=== PATIENT | male | born 1960 | race Caucasian/White ===

== ENCOUNTER 2021-01-16 07:27 | Outpatient (REF) | payer OTHER, SELFPAY ==
--- NOTE | ~2021-01-16 | CT_ITS ---
EXAMINATION: CT CHEST SCREENING CLINICAL INFORMATION: Follow-up lung screening. COMPARISON: CT chest 07/18/2020. TECHNIQUE: Multidetector volumetric CT imaging of the chest is performed without contrast using low dose technique. Additional 2D coronal and sagittal reformatted images and axial 3D maximum intensity projection (MIP) images are generated on the CT workstation. This CT examination was performed using dose optimization techniques as appropriate, variously including the following: *Automated exposure control *Adjustment of mA and/or kV according to patient size (this includes techniques or standardized protocols for targeted exams where dose is matched to indication/reason for exam; i.e. extremities or head) *Use of iterative reconstruction technique DLP: 74 mGy-cm FINDINGS: LUNGS: The lungs are well expanded and clear of acute pneumonic process. There is a 5 mm nodule right upper lobe axial image 164/6. There are 2 mm calcified nodules left upper lobe axial image 191/6, lingula 316/6. MEDIASTINUM: The thyroid lobes are symmetrical and normal. The central trachea and the bronchi are widely patent. No abnormal mediastinal or hilar lymph nodes seen heart size and the great vessels are normal caliber. PLEURA: There is no pleural effusion. No pleural mass or thickening. AXILLA: Few scattered bilateral axillary benign lymph nodes are seen. The chest wall is unremarkable. UPPER ABDOMEN: Visualized liver, spleen, pancreas and bilateral adrenal glands are unremarkable. OSSEOUS STRUCTURES: Moderate ventral spondylosis mid and lower dorsal spine. No lytic or sclerotic process seen. CT/CT lung screen follow up IMPRESSION: Stable noncalcified 5 mm nodules right upper lobe and 2 small calcified granulomas. ASSESSMENT: Lung-RADS category 2: Benign. RECOMMENDATION: Low-dose annual CT chest.
== END 2021-01-16 07:28 | disposition home or self-care (01) ==
LOC: HO.CT 07:27
PROVIDERS: Visit Provider Physician Assistant Medical
DX: Z12.2 Encounter for screening for malignant neoplasm of respiratory organs (principal); F17.210 Nicotine dependence, cigarettes, uncomplicated
CPT/HCPCS: 71250

== ENCOUNTER → 2021-02-08 09:06 | Outpatient (BNVA) | payer OTHER, SELFPAY | PROVIDERS: PCP Internal Medicine; Visit Provider Surgery | DX: R91.1 Solitary pulmonary nodule (principal); F17.210 Nicotine dependence, cigarettes, uncomplicated; Z79.899 Other long term (current) drug therapy | CPT/HCPCS: 99212 ==

== ENCOUNTER 2021-08-01 07:53 | Outpatient (REF) | payer OTHER, SELFPAY ==
--- NOTE | 2021-08-01 | PFT_ITS ---
FLOWS: FEV1 44% of predicted at 1.54 L. FVC 80% of predicted at 3.69 L. FEV1 to FVC ratio of 0.42. Positive bronchodilator response. LUNG VOLUMES: Total lung capacity 128% of predicted at 8.72 L. Residual volume 258% of predicted at 5.72 L. Slow vital capacity 65% of predicted at 3.00 L. Expiratory reserve volume 43% of predicted at 0.57 L. Diffusion capacity is moderately decreased. IMPRESSION: Severe obstructive ventilatory defect with positive bronchodilator response. Increased total lung capacity suggests hyperinflation. Increased residual volume suggests air trapping. Decreased expiratory reserve volume suggests extrathoracic restriction likely secondary to abdominal obesity. Decreased diffusion capacity suggests emphysema. MD DIANA Lopez/MODL / [id number]
== END 2021-08-01 07:54 | disposition home or self-care (01) ==
LOC: HO.RESP 07:53
PROVIDERS: PCP Internal Medicine; Visit Provider Internal Medicine
DX: J44.9 Chronic obstructive pulmonary disease, unspecified (principal)
CPT/HCPCS: 94060; 94727; 94729

== ENCOUNTER 2022-01-21 07:27 | Outpatient (REF) | payer OTHER, SELFPAY ==
--- NOTE | ~2022-01-21 | CT_ITS ---
EXAMINATION: CT CHEST SCREENING CLINICAL INFORMATION: Former smoker. Quit 6 years ago. 27 pack years. Tube 0.5 packs per day. COMPARISON: Previous chest CT most recent December 2020 TECHNIQUE: Multidetector volumetric CT imaging of the chest is performed without contrast using low dose technique. Additional 2D coronal and sagittal reformatted images and axial 3D maximum intensity projection (MIP) images are generated on the CT workstation. This CT examination was performed using dose optimization techniques as appropriate, variously including the following: *Automated exposure control *Adjustment of mA and/or kV according to patient size (this includes techniques or standardized protocols for targeted exams where dose is matched to indication/reason for exam; i.e. extremities or head) *Use of iterative reconstruction technique DLP: 76 mGy-cm FINDINGS: LUNGS: There is evidence of emphysema. There is a 4 mm noncalcified right upper lobe nodule axial image 176 series 6 that is stable. There is a 3 mm calcified left lower lobe nodule axial image 226 series 6 that is stable. There is a 3 mm calcified lingular nodule axial image 351 series 6 that is stable. The lungs are otherwise clear. No endobronchial or endotracheal lesion is seen. MEDIASTINUM: Mild coronary artery calcification. The mediastinum is otherwise normal. PLEURA: There is no pleural effusion. No pleural mass or thickening. AXILLA: No lymphadenopathy. UPPER ABDOMEN: There is a low-attenuation lesion in the upper pole the left kidney that is stable. This may represent a cyst. There may be diverticulosis of the colon. OSSEOUS STRUCTURES: Degenerative changes of the spine. CT/CT lung screening IMPRESSION: Emphysema. Stable small pulmonary nodules. Mild coronary artery calcification. ASSESSMENT: Lung-RADS category 2: Benign RECOMMENDATION: Annual low-dose chest CT follow-up recommended.
== END 2022-01-21 07:28 | disposition home or self-care (01) ==
LOC: HO.CT 07:27
PROVIDERS: PCP Internal Medicine; Visit Provider Physician Assistant Medical
DX: Z12.2 Encounter for screening for malignant neoplasm of respiratory organs (principal); F17.210 Nicotine dependence, cigarettes, uncomplicated
CPT/HCPCS: 71271

== ENCOUNTER 2022-09-15 13:58 | Day surgery (SDC) | payer OTHER, SELFPAY ==
--- NOTE | 2022-09-15 | ECG_ITS ---
Test Reason : rhythm change Blood Pressure : / mmHG Vent. Rate : 090 BPM Atrial Rate : 090 BPM P-R Int : 162 ms QRS Dur : 082 ms QT Int : 394 ms P-R-T Axes : 085 066 069 degrees QTc Int : 481 ms Sinus rhythm with frequent Premature ventricular complexes in a pattern of bigeminy Abnormal ECG No previous ECGs available Referred By: Evita Rea Electronically Signed By:PHOEBE BRADY MD
[2022-09-15 14:13] VITALS: BMI 31.7
[2022-09-15 14:18] VITALS: BP 126/78; PULSE 79; RESP 18; TEMP 36.2; O2SAT 96
[2022-09-15 14:19] VITALS: BMI 31.7
--- NOTE | 2022-09-15 14:39 | PC.NURSE ---
educated patient on risk of jewelry on during procedure, patient stated aware of risks and unable to remove ring and to go forward with procedure.
--- NOTE | 2022-09-15 14:42 | P.CONAN_ITS ---
HPI - Anesthesia Eval Consult details Narrative: 62 yo male patient for colonoscopy PMFSH Active Problems Active Problems: All Active Problems (Updated 09/15/22 @ 09:14 by Shanna Powell, RN) Pulmonary nodule (Acute) Personal history of nicotine dependence (Acute) Past Medical History Medical History (Updated 09/15/22 @ 09:14 by Shanna Powell, SIENNA) COPD (chronic obstructive pulmonary disease) History of MRSA infection (~2015) History of seizure disorder Hypertension Personal history of nicotine dependence Spondylosis of thoracolumbar spine Tubular adenoma of colon (~2010) Family History Family history of problems with anesthesia: No Surgical History Surgical History (Updated 01/24/22 @ 11:45 by Taylor Villarreal PA-C) History of colonoscopy History of eye surgery History of Problems with Anesthesia: No Social History Social History Patient Tobacco Use Status: Former Tobacco user Use of substances other than those prescribed or required for medical reasons: No Are you DNR?: Yes Advance Directives: No Advance Directives Information Provided: Yes Meds Allergies Allergy/AdvReac Type Severity Reaction Status Date / Time No Known Allergies Allergy Verified 02/08/21 09:08 [No Known Allergies*] Active Medications: Current Medications Sodium Biphosphate/Sodium Phosphate (Sodium Phosphate,[place]-Dibasic 133 Ml Enema) 133 ml IN ONCE PRN PRN Reason: Poor Colonoscopy Prep Results Home Medications Medication Instructions Recorded Confirmed Last Taken Type ipratropium bromide 17 2 puff inhalation QID 10/02/20 02/08/21 Unknown History mcg/actuation HFA aerosol inhaler (Atrovent HFA) carbamazepine 200 mg tablet mg PO 09/15/22 09/15/22 Unknown History fluticasone 500 mcg-salmeterol 50 1 puff inhalation BID 09/15/22 09/15/22 Unknown History mcg/dose blistr powdr for inhalation (Advair Diskus) lisinopril 5 mg tablet 1 tab PO DAILY 09/15/22 09/15/22 Unknown History Exam Exam Date and Time: September 15, 2022 144 Height,Weight and Vital Signs: Height 5 ft 9 in Weight 97.522 kg Last Vital Signs Temp 97.2 F 09/15/22 14:18 Pulse 79 09/15/22 14:18 Resp 18 09/15/22 14:18 BP 126/78 09/15/22 14:18 Pulse Ox 96 09/15/22 14:18 O2 Del Method 09/15/22 14:18 Airway Mallampati Class: II TM Dist: >3cm Neck ROM: Limited Denture: Upper and Lower Heart: RRR Lungs: CTAB Assessment and Plan Assessment Anesthesia Assessment: Anesthesia Plan Discussed Final Anesthetic Review Family History of Problems with Anesthesia: No History of Problems with Anesthesia: No NPO: Yes ASA Class: III Final Preanesthetic Review: No Changes in Pt Med Stat, Meds/Allgs Chart Reviewed, Consent Obtained/Reviewed and Anes Risks/Benef Reviewed Patient Risk: Intermediate Procedure Risk: Low Assessment/Block/Sedation in SS: Assess/Block/Sedation-SS Anesthetic Plan Anesthetic Plan: MAC: Disposition: Standard PACU
[2022-09-15] MEDS: Lactated Ringers 1,000 ML 100 ML IVCONT (14:52)
[2022-09-15 15:53] VITALS: BP 123/93; PULSE 60; RESP 20; TEMP 36.4; O2SAT 99
--- NOTE | 2022-09-15 15:54 | PM.OP ---
Brief Operative Note Date of Service: 09/15/22 Pre-op diagnosis: Screening Post-op diagnosis: other (Diverticulosis) Procedure: Colonoscopy to the cecum and TI Surgeon: Gumaro Swanson Anesthesia: MAC Was an Notching Press Operator used for this Procedure?: No Estimated blood loss (mL): 0 Pathology: none sent Condition: stable Disposition: PACU
[2022-09-15 16:08] VITALS: BP 116/38; PULSE 78; RESP 20; O2SAT 100
[2022-09-15 16:23] VITALS: BP 125/62; PULSE 68; RESP 20; TEMP 36.4; O2SAT 96
--- NOTE | 2022-09-16 03:01 | OP_ITS ---
SURGEON: Gumaro Swanson MD INDICATIONS: The patient presents for evaluation of colorectal cancer screening and personal history of tubular adenoma of the colon. Full consent has been obtained from him for this, including risks of bleeding and perforation. PREOPERATIVE DIAGNOSIS: POSTOPERATIVE DIAGNOSIS: PROCEDURE PERFORMED: Colonoscopy to cecum and terminal ileum. ESTIMATED BLOOD LOSS: COMPLICATIONS: ANESTHESIA: Monitored anesthesia care. ASSISTANTS: SPECIMENS: PREOPERATIVE DIAGNOSES: Colorectal cancer screening and personal history of tubular adenoma of the colon. POSTOPERATIVE DIAGNOSES: Colorectal cancer screening and personal history of tubular adenoma of the colon, sigmoid diverticulosis, and internal hemorrhoids. DESCRIPTION OF PROCEDURE: The patient was placed in the left lateral decubitus position. The digital rectal exam revealed no abnormalities. The Olympus video pediatric colonoscope was entered into the rectum and advanced to the cecum with the assistance of abdominal wall pressure. Once in the cecum, I did identify normal-appearing cecal pouch with appendiceal orifice and a normal-appearing ileocecal valve. The terminal ileum was cannulated and appeared normal. The scope was withdrawn back in the colon. The entire cecum and ileocecal valve appeared normal. The scope was then slowly withdrawn, assessing all mucosal surfaces carefully. Preparation was excellent. I did not visualize any sign of polyps, colitis, nor angiodysplasia. There was a mild amount of sigmoid diverticulosis. In the rectum, scope was retroflexed visualizing internal hemorrhoids, but no other pathology. The rectal mucosa appeared normal. The scope was straightened and withdrawn from the patient. He tolerated the procedure well and was returned to the recovery area in stable condition. IMPRESSION: 1. Diverticulosis. 2. Internal hemorrhoids. PLAN: I would recommend a repeat colonoscopy in 5 years for further screening, given his previous history of tubular adenomas. He will otherwise see me on a p.r.n. basis. MD DELMI Woodard/ALAINA / [id number]
== END 2022-09-15 16:32 | disposition home or self-care (01) ==
PROVIDERS: PCP Internal Medicine; Visit Provider Internal Medicine
PROC: 0DJD8ZZ Inspection of Lower Intestinal Tract, Via Natural or Artificial Opening Endoscopic (ICD-10-PCS; CPT 45378; principal; 2022-09-15 15:00)
DX: Z12.11 Encounter for screening for malignant neoplasm of colon (principal); Z86.010 Personal history of colon polyps; K57.30 Diverticulosis of large intestine without perforation or abscess without bleeding; K64.8 Other hemorrhoids; G40.909 Epilepsy, unspecified, not intractable, without status epilepticus; I10 Essential (primary) hypertension; J44.9 Chronic obstructive pulmonary disease, unspecified; I49.3 Ventricular premature depolarization; Z79.51 Long term (current) use of inhaled steroids; Z79.899 Other long term (current) drug therapy; Z86.14 Personal history of Methicillin resistant Staphylococcus aureus infection; Z87.891 Personal history of nicotine dependence
CPT/HCPCS: 45378; 93005

== ENCOUNTER 2023-04-09 08:23 | Outpatient (REF) | payer OTHER, SELFPAY ==
--- NOTE | ~2023-04-09 | CT_ITS ---
EXAMINATION: CT CHEST SCREENING CLINICAL INFORMATION: Former smoker. Quit 6 years ago. 27 pack year history. COMPARISON: Previous chest CT scans most recent December 2021 TECHNIQUE: Multidetector volumetric CT imaging of the chest is performed without contrast using low dose technique. Additional 2D coronal and sagittal reformatted images and axial 3D maximum intensity projection (MIP) images are generated on the CT workstation. This CT examination was performed using dose optimization techniques as appropriate, variously including the following: *Automated exposure control *Adjustment of mA and/or kV according to patient size (this includes techniques or standardized protocols for targeted exams where dose is matched to indication/reason for exam; i.e. extremities or head) *Use of iterative reconstruction technique DLP: 65 mGy-cm FINDINGS: LUNGS: 3 mm right upper lobe nodule axial image 160 series 5 is stable. 3 mm calcified left lower lobe nodule axial image 209 series 5 is stable. 3 mm calcified lingular nodule axial image 345 series 5 is stable. Mild scarring at the lung apices. Mild emphysematous change. No endobronchial or endotracheal lesion. MEDIASTINUM: The mediastinum is normal. CORONARY ARTERY CALCIFICATION: Mild PLEURA: There is no pleural effusion. No pleural mass or thickening. AXILLA: No lymphadenopathy. UPPER ABDOMEN: Small stable low-attenuation lesion measuring 5 mm in the left lobe of the liver axial image 53 series 3. There may be diverticulosis of the colon. OSSEOUS STRUCTURES: Degenerative changes of the spine. CT/CT lung screening IMPRESSION: Mild emphysema. Stable small pulmonary nodules. ASSESSMENT: Lung-RADS category 2: Benign RECOMMENDATION: Annual low-dose chest CT follow-up recommended
== END 2023-04-09 08:24 | disposition home or self-care (01) ==
LOC: HO.CT 08:23
PROVIDERS: PCP Internal Medicine; Visit Provider Physician Assistant Medical
DX: Z12.2 Encounter for screening for malignant neoplasm of respiratory organs (principal); Z87.891 Personal history of nicotine dependence
CPT/HCPCS: 71271

== ENCOUNTER 2023-04-30 11:32 | Outpatient (REF) | payer OTHER, SELFPAY ==
--- NOTE | ~2023-04-30 | US_ITS ---
EXAMINATION: US VENOUS WITH DOPPLER LOWER EXTREMITY, LEFT CLINICAL INFORMATION: Left lower extremity edema with question of DVT. COMPARISON: Left leg ultrasound 07/25/2016. TECHNIQUE: Ultrasound of the deep veins is performed from the hip to the calf with compression sonography and color and pulse Doppler assessment. Spectral analysis with color-flow imaging is performed. FINDINGS: There is extensive DVT present throughout nearly the entire femoral vein beginning at the saphenofemoral junction extending down to the level of the knee. The common femoral vein, aside from a small bulge of thrombus into it, appears normal. Posterior tibial veins appear normal. Peroneal veins not well seen. US/US venous duplex LE IMPRESSION: Extensive left lower extremity DVT. Dr. Laurent Caceers was notified at 12:16 PM immediately after exam with these results.
[2023-04-30 17:22] LABS: INTERNATIONAL NORM RATIO 1.2 (0.9-1.1); Prothrombin Time 13.6 SEC (10.0-13.1)
== END 2023-04-30 11:33 | disposition home or self-care (01) ==
LOC: HO.US 11:32
PROVIDERS: PCP Internal Medicine; Visit Provider Internal Medicine
DX: R60.0 Localized edema (principal); I82.402 Acute embolism and thrombosis of unspecified deep veins of left lower extremity
CPT/HCPCS: 36415; 85610; 93971

== ENCOUNTER 2023-05-04 08:25 | Outpatient (REF) | payer OTHER, SELFPAY | END 2023-05-04 08:26 | disposition home or self-care (01) | LOC: HO.LABR 08:25 | PROVIDERS: PCP Internal Medicine; Visit Provider Internal Medicine | DX: I82.402 Acute embolism and thrombosis of unspecified deep veins of left lower extremity (principal) | CPT/HCPCS: 36415; 85610 ==

== ENCOUNTER 2023-05-07 07:56 | Outpatient (REF) | payer OTHER, SELFPAY | END 2023-05-07 07:57 | disposition home or self-care (01) | LOC: HO.LABR 07:56 | PROVIDERS: PCP Internal Medicine; Visit Provider Internal Medicine | DX: I82.402 Acute embolism and thrombosis of unspecified deep veins of left lower extremity (principal) | CPT/HCPCS: 36415; 85610 ==

== ENCOUNTER 2023-05-14 07:58 | Outpatient (REF) | payer OTHER, SELFPAY ==
[2023-05-14 09:17] LABS: INTERNATIONAL NORM RATIO 1.1 (0.9-1.1)
== END 2023-05-14 07:59 | disposition home or self-care (01) ==
LOC: HO.LABR 07:58
PROVIDERS: PCP Internal Medicine; Visit Provider Internal Medicine
DX: I82.402 Acute embolism and thrombosis of unspecified deep veins of left lower extremity (principal)
CPT/HCPCS: 36415; 85610

== ENCOUNTER 2023-08-23 06:40 | Emergency (ER) | payer OTHER, SELFPAY ==
--- NOTE | ~2023-08-23 | CT_ITS ---
EXAMINATION: CT HEAD WITHOUT CONTRAST, CT CERVICAL SPINE WITHOUT CONTRAST CLINICAL INFORMATION: Fall. On thinners COMPARISON: None. TECHNIQUE: Multidetector CT examination of the head is performed without contrast. Multidetector CT of the cervical spine without contrast. Multiplanar postprocessing This CT examination was performed using dose optimization techniques as appropriate, variously including the following: *Automated exposure control *Adjustment of mA and/or kV according to patient size (this includes techniques or standardized protocols for targeted exams where dose is matched to indication/reason for exam; i.e. extremities or head) *Use of iterative reconstruction technique DLP: HEAD 743 mGy-cm DLP: CERVICAL 490 mGy-cm FINDINGS: Head CT: There is no evidence of a recent intracranial hemorrhage or extra-axial collection. The midline structures are nondisplaced. The ventricles, cisterns, and sulci are within normal limits. There is no evidence of an intra-axial mass. There are no suspicious focal areas of abnormal brain attenuation. The vazquez-white interface is within normal limits. There is no evidence of acute territorial infarct. Moderately severe patchy nonspecific white matter low attenuation. This could be related to microangiopathy. The paranasal sinuses and mastoids are within normal limits. No fracture demonstrated Cervical CT: There is no acute fracture or subluxation. No suspicious focal lesion or loss of volume. There is some disc narrowing with osteophytes at the C3/C4 level. There is facet disease with proliferative osteophyte greatest on the left at C7/T1 but also present on the left at C4 and C5. No suspicious abnormality in the apex of the chest CT/CT cervical spine wo IV con IMPRESSION: 1. There is no evidence of a recent intracranial hemorrhage. 2. No acute infarct. 3. No acute fracture or subluxation of the cervical spine Nonspecific white matter disease.
[2023-08-23 06:42] VITALS: BP 141/75; PULSE 87; RESP 18; TEMP 36.8; O2SAT 95; BMI 33.4
--- NOTE | 2023-08-23 09:10 | ED_ITS ---
HPI - Fall General Chief Complaint: Fall Stated Complaint: fall w/ head strike, on blood thinners Time Seen by Provider: 08/23/23 09:10 Source: patient Mode of arrival: ambulatory Limitations: no limitations History of Present Illness HPI Narrative: 63 yo male with history of left lower extremity DVT on Coumadin, COPD, HTN who presents to the ER for evaluation of a fall out of bed today. Patient states he rolled out of bed this morning, hit his chin on the nightstand and then fell onto the carpeted floor. He sustained some superficial abrasions and skin tears to the bilateral arms. He did not lose consciousness. He denies any other injuries. No chest pain, shortness of breath, dizziness. No headache or neck pain. His encouraged him to come to the ER for evaluation given he is on Coumadin. Last INR was in the 2 range. MD complaint: fall Onset (ago): hour(s) Fall from: out of bed Fall witnessed: yes, by family Place fall occurred: home Loss of consciousness: none Prolonged down time: no Symptoms prior to fall: none Location of injury: face Location of injury - extremities: right: elbow and bilateral: arm Severity: mild Associated symptoms (after fall): denies Related Data Home Medications Medication Instructions Recorded Confirmed ipratropium bromide 17 2 puff inhalation QID 10/02/20 02/08/21 mcg/actuation HFA aerosol inhaler (Atrovent HFA) carbamazepine 200 mg tablet mg PO 09/15/22 09/15/22 fluticasone 500 mcg-salmeterol 50 1 puff inhalation BID 09/15/22 09/15/22 mcg/dose blistr powdr for inhalation (Advair Diskus) lisinopril 5 mg tablet 1 tab PO DAILY 09/15/22 09/15/22 Allergies Allergy/AdvReac Type Severity Reaction Status Date / Time No Known Allergies Allergy Verified 08/23/23 06:49 [No Known Allergies*] Review of Systems Review of Systems: Yes all other systems are reviewed and are negative [facility] Past Medical History Medical History (Updated 08/24/23 @ 00:00 by Background Daemon) COPD (chronic obstructive pulmonary disease) Spondylosis of thoracolumbar spine Tubular adenoma of colon (~2010) Personal history of nicotine dependence History of MRSA infection (~2015) History of seizure disorder Hypertension Surgical History (Updated 01/24/22 @ 11:45 by Taylor Villarreal PA-C) History of eye surgery History of colonoscopy Social History Social History Alcohol intake: current Alcohol intake frequency: a few times a week Patient Tobacco Use Status: Former Tobacco user Smoked in Last 30 Days: No Use of substances other than those prescribed or required for medical reasons: No Advance Directives: No Advance Directives Information Provided: Yes Physical Exam Vital Signs: Vital Signs: Last Vital Signs Temp 98.2 F 08/23/23 06:42 Pulse 87 08/23/23 06:42 Resp 18 08/23/23 06:42 BP 141/75 H 08/23/23 06:42 Pulse Ox 95 08/23/23 06:42 O2 Del Method Room Air 08/23/23 06:42 BMI result Body Mass Index 33.4 Appearance: Alert. Oriented X3. No acute distress. Head: normocephalic, atraumatic. Eyes: Pupils equal, round and reactive to light. ENT: Pharynx normal. No tonsillar swelling or exudate. Neck: Normal inspection. Neck supple. NO midline tenderness. no soft tissue tenderness. normal ROM CVS: Normal heart rate and rhythm. Pulses normal. Respiratory: No respiratory distress. Breath sounds normal. Abdomen: Soft and nontender. +BS x4 Skin: Skin warm and dry. Normal skin color. Normal skin turgor. No rashes. Extremities: No lower extremity edema. No joint swelling. There are superficial abrasions and ecchymotic areas on bilateral upper extremities. On the right posterior elbow there is a skin tear approximately 2 cm with active oozing. Normal range of motion of the elbow, nontender. There is a superficial abrasion to the right upper arm approximately 3 cm in length, no active bleeding. Neuro/psych: Oriented X 3. No motor deficit. No sensory deficit. CN II-XII intact. Normal speech and cognition. Steady gait Medical Decision Making Medical Decision Making MDM Narrative: 63-year-old male with history of DVT on Coumadin, HTN, COPD presents to the ER for evaluation of a fall out of bed this morning. He did hit his chin to the nightstand, denies hitting his head otherwise. No headache or neck pain. He does have superficial abrasions and a skin tear on his right upper extremity. No other major injuries. His exam is unremarkable. His wounds were dressed and cleaned. His CT scan was reviewed, no evidence of ICH or traumatic injury. He feels well to go home. At this time is stable for discharge with outpatient follow-up. Return precautions were discussed. Differential Diagnosis Differential Diagnoses: The differential diagnosis associated with the presentation includes concussion without loss of consciousness, intracranial hemorrhage, subdural hematoma, epidural hematoma superficial abrasions, deep lacerations, ecchymosis, hematoma Admission/Observation Consideration of admission/observation: Escalation of care including admission/observation considered on Coumadin with head trauma, considered observation/ admission/possible transfer on arrival Independent Interpretation I performed an independent interpretation of an: CT Scan Interpretation: CT scan of the head and neck were reviewed, no acute bleed or edema, agree with radiologist read Radiology Impression Discussion of test interpretation with radiology: I have reviewed the radiologist's reading. Radiologist Impression: 9 CT/CT head/brain wo IV con IMPRESSION: 1. There is no evidence of a recent intracranial hemorrhage. 2. No acute infarct. 3. No acute fracture or subluxation of the cervical spine External Record Review External record reviewed: Outpatient record, Prior outpatient labs and Prior outpatient radiology Tests considered The following testing was considered but not selected: considered basic labs but deferred given examination and CT scan findings Chronic Conditions Patient?s care impacted by: Hypertension and Other (DVT on coumadin) Discharge Plan Discharge Clinical Impression: Skin tear of right upper extremity, Superficial abrasion Patient Disposition: Home, Self-Care Instructions: Abrasion (ED), Skin Tear (ED) Additional Instructions: Your CT scans today were normal Change the dressing on your wounds later this afternoon If bleeding persists, apply pressure for 10 minutes and replace dressing. Use bacitracin or neosporin to the wounds to help promote healing and prevent infection If you develop new or worsening symptoms call 911 or come back to the ER for further evaluation. Prescriptions: No Action Atrovent HFA 17 mcg/actuation HFA aerosol inhaler 2 puff inhalation QID carbamazepine 200 mg tablet PO fluticasone propion-salmeterol [Advair Diskus] 500-50 mcg/dose blister with device 1 puff inhalation BID lisinopril 5 mg tablet 1 tab PO DAILY Interventions: ED Discharge Assessment Last Done: 08/23/23 09:28 Discharge Date/Time: 08/23/23 09:39
--- NOTE | 2023-08-23 09:29 | PC.NURSE ---
Discharge plan reviewed with patient and who verbalized understanding
== END 2023-08-23 09:39 | disposition home or self-care (01) ==
PROVIDERS: Emergency Provider Emergency Medicine
DX: S41.111A Laceration without foreign body of right upper arm, initial encounter (principal); S40.811A Abrasion of right upper arm, initial encounter; R51.9 Headache, unspecified; M54.2 Cervicalgia; J44.9 Chronic obstructive pulmonary disease, unspecified; M79.602 Pain in left arm; M79.601 Pain in right arm; I10 Essential (primary) hypertension; W06.XXXA Fall from bed, initial encounter; Y93.9 Activity, unspecified; Y92.9 Unspecified place or not applicable; Y99.9 Unspecified external cause status; Z86.718 Personal history of other venous thrombosis and embolism; Z79.01 Long term (current) use of anticoagulants; Z87.891 Personal history of nicotine dependence; Z23 Encounter for immunization
CPT/HCPCS: 70450; 72125; 99283; 99284

== ENCOUNTER 2025-08-24 07:52 | Outpatient (AMB) | payer MEDICARE, SELFPAY ==
--- OUTSIDE RECORDS SUMMARY | 2025-08-24 07:54 | XMS_ITS | Encounter Summary ---
Author Organization [facility] Address [address] [facility] [address] [place] [phone] Phone Care Team Providers Care Lucerne Farmer Name Role Phone Gumaro Swanson MD Unavailable Millie Forte MBBS Unavailable [phone] Laurent Caceres MD Primary Care Provider [phone] Jennifer Yanes RN Unavailable [phone] Encounter Details Date Type Department Care Team (Late st Contact Info) Description 08/17/2025 Telephone [facility] Internal Medicine [address] [place], [place] [id number] Laurent Caceres MD [address] [place], [place] [id number] [email or web address] Social History Tobacco Use Types Packs/Day Years Used Date Smoking Tobacco: Former Cigarettes 2 34.9 1 982 - 10/02/2016 Smokeless Tobacco: Never Alcohol Use Standard Drinks/Week Comments Yes 2 (1 standard drink = 0.6 oz pur e alcohol) 2-3 beers weekly if that. Child or Family Care Answer Date Record ed Do you have problems with on e of the following making it difficult for you to work, study, or receive health care? No 07/01/2024 Education Answer Date Recorded Are you interested in help w ith more adult education (for example, completing high school, GED, job training, learning the Cypriot language, technical skills, or developing parenting skills)? No 07/01/2024 Are you concerned about learning? Not on file 07/01/2024 No 07/01/2024 Yes 07/01/2024 Food Answer Date Recorded Within the past 6 months we worried whether our food would run out before we got money to buy more. Never True 07/01/2024 Within the past 6 months the food we bought just didn't last and we didn't have enough money to get more. Never True Residential Stability Answer Date Recor ded What is your housing situation today? I have liliana sing 07/01/2024 How many times have you move d in the past 12 months? Zero (I did not move) 07/01/2024 Paying for Meds Answer Date Recorded Do you have trouble paying for medicines? No 07/01/2024 Paying Utility Bills Answer Date Record ed Do you have trouble paying your heating or elect ricity bill? No 07/01/2024 Transportation Answer Date Recorded Has the lack of transportati on kept you from medical appointments or from getting medications? No 07/01/2024 Unemployment Answer Date Recorded Are you currently unemployed or working on a part-time or temporary basis, and looking for work? No 04/29/2022 Digital Access Answer Date Recorded No 07/01/2024 Yes 07/01/2024 Do you have reliable internet access at home? Ye s 07/01/2024 Do you have a device (e.g., phone, tablet, computer) with a working camera? Yes 07/01/2024 SNAP & WIC Answer Date Recorded Do you receive benefits from SNAP (the Supplemental Nutrition Assistance Program) or the Food Stamp Program? No 07/01/2024 SNAP is a free program that can help you and your family get access to healthy foods, nutrition classes, utility discounts, and more. Would you be interested in learning more? No 07/01/2024 Can we help you enroll in SNAP? Not on file 07/01/2024 Benefits received from WIC? Not on file 06/04 WIC is a free program, interested in learning mo re? Not on file 07/01/2024 Can we help you enroll in WIC? Not on file 0 07/01/2024 Intimate Partner Violence Answer Date R ecorded Denied Basic Needs Not on file 07/01/2024 In the past 12 months have y ou been in a relationship with a person who hurts, threatens, or tries to control you? No 07/01/2024 Worried food would run out Not on file 07/01 In the past 12 months have y ou been in a relationship with a person who hurts, threatens, or tries to control you? No 07/01/2024 Education Answer Date Recorded What is the highest level of school you have completed or the highest degree you have received? 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, [address] [address] 08/28/2025 9:00 AM EDT Office Visit [facility] Pulmonary, Allergy and Critical Care Medicine [address] [place] [address] Shun Hernadez MD [address] [place] [address] 08/28/2025 12:00 PM EDT Appointment [facility], [address] [address] Shun Hernadez MD [address] [place] [address] 09/11/2025 8:20 AM EST Office Visit Anticoagulation Clinic [address] [place] [address] Laurent Caceres MD [address] [place] [address] documented as of this encounter Visit Diagnoses Not on filedocumented in this encounter Additional Health Concerns Assessment Noted Time PHQ-2 Depression Total Score: 0 07/01/20 8:46 AM EDT documented as of this encounter Care Teams Lucerne Farmer Relationship Specialty Start Date End Date Laurent Caceres MD [address] [place] [address] PCP - General 08/07/25 Gumaro Swanson MD [address] [place] [address] Gastroenterology 02/23/20 Millie Forte MBBS [address] [place] [address] [place] [address] [email or web address] Medical Oncology 05/06/24 Jennifer Yanes RN [address] [place] [address] Registered Nurse 08/07/25 documented as of this encounter Additional Source Comments The information contained in this document represents components of the legal health record. It is not the complete legal health record.[facility]
--- OUTSIDE RECORDS SUMMARY | 2025-08-24 07:55 | XMS_ITS | Encounter Summary ---
Author Organization [facility] Address [address] [facility] [address] [place] [phone] Phone Care Team Providers Care Customer Advocacy Manager Name Role Phone Laurent Caceres MD Primary Care Provider [phone] Gumaro Swanson MD Unavailable [phone] Millie Forte MBBS Unavailable [phone] Laurent Caceres MD Primary Care Provider [phone] Jennifer Yanes RN Unavailable [phone] Encounter Details Date Type Department Care Team (Late st Contact Info) Description 07/01/2024 Procedure Pass [facility], [place] [facility] - [address] [phone] Social History Tobacco Use Types Packs/Day Years [...] high school, GED, job training, learning the Romanian language, technical skills, or developing parenting skills)? [...] on file documented as of this encounter Plan of Treatment Upcoming Encounters Date Type Department Care Team (Late st Contact Info) Description 09/13/2024 Procedure Pass [facility], [place] [address] [address] 08/28/2025 9:00 AM EDT Office Visit [facility] Pulmonary, Allergy and Critical Care Medicine [address] [place] [address] Shun Hernadez MD [address] [place] [address] 08/28/2025 12:00 PM EDT Appointment [facility], [address] [address] Shun Hernadez MD [address] [place] [address] 09/11/2025 8:20 AM EST Office Visit Anticoagulation Clinic [address] [place] [address] Laurent Caceres MD [address] [place] [address] documented as of this encounter Visit Diagnoses Not on filedocumented in this encounter Additional Health Concerns Assessment Noted Time PHQ-2 Depression Total Score: 0 07/01/20 24 8:46 AM EDT documented as of this encounter Care Teams Customer Advocacy Manager Relationship Specialty Start Date End Date Laurent Caceres MD [address] [place] [address] PCP - General Internal Medicine 01/06/20 07/27/25 Laurent Caceres MD [address] [place] [address] PCP - General 08/07/25 Gumaro Swanson MD [address] [place] [address] [address] [place] [address] Gastroenterology 02/23/20 Millie Forte MBBS [address] [place] [address] [email or web address] Medical Oncology 05/06/24 Jennifer Yanes, RN [address] [place] [address] Registered Nurse 08/07/25 documented as of this encounter Additional Source Comments The information contained in this document represents components of the legal health record. It is not the complete legal health record.[facility]
--- OUTSIDE RECORDS SUMMARY | 2025-08-24 07:55 | XMS_ITS | Clinical Summary ---
Author Organization [facility] Address [address] [facility] [address] [place] [phone] Phone Care Team Providers Care Floodplain Manager Name Role Phone Gumaro Swanson MD Unavailable Millie Forte MBBS Unavailable [phone] Laurent Caceres MD Primary Care Provider [phone] Jennifer Yanes RN Unavailable Allergies Active Allergy Reactions Criticality Noted Date Comments Mistletoe (Viscum Pini - From [place] Trees) Hives 05/22/2023 [place], fir, balsam trees (meenakshi trees); hives upon touching [place] Hives Medium 05/22/2023 Hives after eating many of them Medications cholecalciferol (VITAMIN D3) 2,000 unit capsuleIndications :Vitamin D deficiency Take 1 capsule (2,000 Units total) by mouth daily. 100 capsule 3 01/16/20 22 Active albuterol 90 mcg/actuation inhalerIndications :Asthma-COPD overlap syndrome,Stage 3 severe COPD by GOLD classification Inhale 2 puffs into the lungs every 6 (six) hours as needed for wheezing. 18 g 5 06/15/20 25 Active roflumilast (DALIRESP) 500 mcg TabIndications:Sta ge 3 severe COPD by GOLD classification Take 1 tablet (500 mcg total) by mouth daily. 30 tablet 11 06/15/20 25 Active fluticasone-umecli din-vilanter (TRELEGY ELLIPTA) 100-62.5-25 mcg inhalation powderIndications: Asthma-COPD overlap syndrome Inhale 1 puff into the lungs daily. 60 each 3 06/15/20 25 Active warfarin (COUMADIN) 5 MG tabletIndications: Acute deep vein thrombosis (DVT) of left lower extremity, unspecified vein TAKE 1 TO 1.5 TABLETS BY MOUTH EVERY NIGHT AT BEDTIME OR DIRECTED 60 tablet 4 06/15/20 25 Active Additional Information Patient taking differently: Maintenance plan:5 mg every Thu, Thu, Thu; 7.5 mg all other days, Reported on 08/07/2025 lisinopril (PRINIVIL,ZESTRIL) 5 MG tabletIndications: Benign essential hypertension TAKE 1 TABLET(5 MG) BY MOUTH DAILY 90 tablet 3 06/15/20 Active carBAMazepine (TEGRETOL) 200 mg IMMEDIATE release tabletIndications: Seizure disorder Take 3.5 tablets (700 mg total) by mouth daily. 315 tablet 06/15/20 25 Active Active Problems Problem Noted Date Diagnosed Date Chronic anticoagulation 08/07/2025 Seizure disorder 12/27/2024 Stage 3 severe COPD by GOLD classification 09/13 Assessment & Plan (09/13/2024 9:40 AM EST): Severe COPD with relatively stable PFTs and symptoms on Trelegy Ellipta. Unfortunately, continues to use albuterol at least 4 times daily. Reviewed changed to take albuterol 15 minutes PRIOR to Trelegy in the morning. If no real benefit does not need to use in such a fashion. Continues to have a productive cough intermittently noted in the office today. Recommend trial of Roflumilast. Start with half dose starter pack for 2 weeks, followed by 1 tablet starter pack for 3 weeks followed by maintenance. Prescription sent to pharmacy though does appear to require a prior Auth. If not covered, can use [facility] [employer] [facility] cost plus. There is a notable interaction with Tegretol, however the interaction is 1 directional with reduced efficacy of Daliresp. If patient does not feel better on full dose Daliresp, could consider trying a slightly higher dose if can get insurance coverage to pay. Obesity, morbid 07/01/2024 COVID-19 05/10/2024 Encounter for screening for lung cancer 03/11/20 Assessment & Plan (01/25/2025 10:00 AM EDT): Due for next CT August 2025. Assessment & Plan (09/13/2024 9:43 AM EST): Lung RADS category 1 study last month. Scheduled for annual repeat study next August. Assessment & Plan (03/11/2024 10:49 AM EDT): Currently receiving low-dose CT scans at [facility], last from April 2023. Have asked that the patient's updated scans be sent to [facility] so I may review the images personally. Voice disturbance 03/11/2024 Assessment & Plan (01/25/2025 9:59 AM EDT): Voice disturbance today he attributes to recent URI. If persist, would have low threshold for laryngeal exam given potential risk of extensive tobacco exposure history and ongoing alcohol use. Assessment & Plan (03/11/2024 10:50 AM EDT): Notable hoarse voice and exam today which the patient states is intermittent and related to the weather. If however becomes persistent, laryngoscopy would be recommended given the patient's extensive tobacco exposure history and subsequent risk for laryngeal neoplasia. DVT (deep venous thrombosis) 05/14/2023 Assessment & Plan (07/02/2025 12:59 PM EDT): IMPRESSION: This is a 65-year-old man with the following diagnosis. 04/30/2023: Extensive left lower extremity DVT, unprovoked Factor V Leiden mutation, heterozygous DISCUSSION: I discussed all impression, natural history of the disease and further management in this regard. Risk of recurrent VTE -- Numerous studies and systematic reviews have evaluated the risk of VTE recurrence in individuals with FVL and a previous VTE episode In a 2006 systematic review that evaluated the risk of VTE recurrence in individuals with FVL compared with those lacking the variant, there was a modest increase in the recurrence risk due to FVL. The 1.4-fold increase may lead to an absolute risk increase of recurrent VTE that may warrant consideration of indefinite treatment in some patients. The duration of anticoagulation depends on the risk of recurrent VTE, which is 1.4 fold higher in FVL heterozygotes as compared to patients with VTE without FVL. As in all patients with VTE, the duration of anticoagulation is an individualized decision. In patients with factor V Leiden mutation, current guidelines suggest indefinite anticoagulation in those whose VTE is unprovoked, life-threatening, at an unusual site or with more than one episode of VTE. Patient has developed residual/chronic thrombosis and some mild residual left lower ankle swelling from his episode of DVT. It was quite extensive at the time of diagnosis. He has been tolerating anticoagulation without any side effects or complications. I think it is reasonable to continue anticoagulation indefinitely at this time. He is on some seizure medications so not a candidate for DOAC's because of interactions. Discussed signs and symptoms suggestive of recurrent thrombosis and potential complications from indefinite/lifelong anticoagulation. RECOMMENDATIONS: Continue anticoagulation with warfarin indefinitely at this time Target INR between 2 and 3 Advised him to give me a call if he needs to undergo surgeries or procedures Follow-up with hematology on as-needed basis Thank you very much for allowing to participate in this patient's care Assessment & Plan (06/20/2024 2:47 PM EDT): IMPRESSION: This is a 64-year-old man with the following diagnosis. 04/30/2023: Extensive left lower extremity DVT, unprovoked Factor V Leiden mutation, heterozygous DISCUSSION: I discussed all impression, natural history of the disease and further management in this regard. Risk of recurrent VTE -- Numerous studies and systematic reviews have evaluated the risk of VTE recurrence in individuals with FVL and a previous VTE episode In a 2006 systematic review that evaluated the risk of VTE recurrence in individuals with FVL compared with those lacking the variant, there was a modest increase in the recurrence risk due to FVL. The 1.4-fold increase may lead to an absolute risk increase of recurrent VTE that may warrant consideration of indefinite treatment in some patients. The duration of anticoagulation depends on the risk of recurrent VTE, which is 1.4 fold higher in FVL heterozygotes as compared to patients with VTE without FVL. As in all patients with VTE, the duration of anticoagulation is an individualized decision. In patients with factor V Leiden mutation, current guidelines suggest indefinite anticoagulation in those whose VTE is unprovoked, life-threatening, at an unusual site or with more than one episode of VTE. Patient has developed residual/chronic thrombosis and some mild residual left lower ankle swelling from his episode of DVT. It was quite extensive at the time of diagnosis. He has been tolerating anticoagulation without any side effects or complications. I think it is reasonable to continue anticoagulation indefinitely at this time. He is on some seizure medications so not a candidate for DOAC's because of interactions. Discussed signs and symptoms suggestive of recurrent thrombosis and potential complications from indefinite/lifelong anticoagulation. RECOMMENDATIONS: Continue anticoagulation with warfarin indefinitely at this time Target INR between 2 and 3 Advised him to give me a call if he needs to undergo surgeries or procedures Follow-up in 1 year Thank you very much for allowing to participate in this patient's care Asthma-COPD overlap syndrome 02/27/2020 Overview (02/27/2020): [facility] [place] 12/23/16 Assessment & Plan (01/25/2025 9:58 AM EDT): Severe COPD with likely mild asthma overlap. Currently clinically stable with mild improvement on regimen of albuterol followed by Trelegy once daily, additional as needed albuterol which she sometimes uses for coughing, and Roflumilast. Somewhat feels better likely due to associated weight loss from Roflumilast but tolerating well with no other systemic side effects. Would continue current regimen. Encouraged to reserve albuterol use for wheezing but not necessarily just for coughing which likely is to expectorate. Will consider repeating PFTs in the next 12 to 24 months Assessment & Plan (09/13/2024 9:42 AM EST): Very minimal residual reactive airway component with normal FeNO level. No indication to increase steroid dose. Continue Trelegy 100 mcg once daily. Encouraged to obtain RSV vaccine as scheduled in 2 weeks. Currently up-to-date with seasonal flu, updated COVID-19, and has pneumococcal vaccine series completed. 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 Has subsequently started on triple inhaler therapy with low-dose Trelegy Ellipta with a marked clinical improvement in his shortness of breath, wheeze and cough. Was given albuterol inhaler which she has been using 4 times a day though it appears some inappropriately for mild intermittent cough and on the urging of his . I suspect his physiology may be notably improved currently, and recommend the following: Continue low-dose Trelegy Ellipta. Would reserve albuterol for as needed if significant shortness of breath, wheezing or persistent cough that any of the above fail to improve with rest and pacing Will repeat full pulmonary function studies in 6 months for new baseline Benign essential hypertension 02/23/2020 Encounters Date Type Department Care Team Description 08/17/2025 Telephone [facility] Internal Medicine [address] [place] [address] Laurent Caceres MD 08/07/2025 8:20 AM EDT Office Visit Anticoagulation Clinic [address] [place] [phone] Laurent Caceres MD DVT (deep venous thrombosis) (Primary Dx); Chronic anticoagulation 07/26/2025 7:34 AM EDT - 07/26/2025 11:59 PM EDT Hospital Encounter [facility], [address] [address] Laurent Caceres MD Discharge Disposition: Home or Self Care 07/14/2025 Telephone [facility] Internal Medicine [address] [place] [address] Laurent Caceres MD Ultrasound 07/12/2025 10:49 AM EDT - 07/12/2025 11:59 PM EDT Hospital Encounter [facility] [address] [place] [address] Laurent Caceres MD Discharge Disposition: Home or Self Care 07/12/2025 9:00 AM EDT Office Visit [facility] Internal Medicine [address] [place] [address] Laurent Caceres MD Routine general medical examination at a health care facility (Primary Dx); Screening for AAA (abdominal aortic aneurysm); Seizure disorder; Need for influenza vaccination; ACP (advance care planning); Screening for prostate cancer; Impaired fasting glucose; Asthma-COPD overlap syndrome; Former smoker; Class 2 obesity due to excess calories with body mass index (BMI) of 35.0 to 35.9 in adult, unspecified whether serious comorbidity present; Benign essential hypertension; Vitamin D deficiency, unspecified 07/10/2025 8:20 AM EDT Office Visit Anticoagulation Clinic [address] [place] [address] Laurent Caceres MD DVT (deep venous thrombosis) (Primary Dx) 07/04/2025 8:40 AM EDT Office Visit [facility]ticoagulation Clinic [address] [place] [phone] Laurent Caceres MD DVT (deep venous thrombosis) (Primary Dx) 06/29/2025 9:20 AM EDT Office Visit [facility] at [address] [address] Millie Forte MBBS Chronic deep vein thrombosis (DVT) of other vein of left lower extremity (Primary Dx) 06/15/2025 Refill [facility] Medicine [address] [place] [id number] Michelle Hansen Medication Management 06/15/2025 Refill [facility] Internal Medicine [address] [place] [address] Laurent Caceres MD Medication Refill 05/29/2025 8:40 AM EDT Office Visit Anticoagulation Clinic [address] [place] [phone] Laurent Caceres MD DVT (deep venous thrombosis) (Primary Dx) from Last 3 Months Immunizations Immunization Administration Dates Next Due COVID-19 (Pre-08/24) Moderna Vaccine, mRNA, PF 02/01/2021,01/04/2021 COVID-19 Pfizer Comirnaty Vaccine 12+ 08/14/2023 INFLUENZA, SPLIT VIRUS, TRIVALENT PF 07/01/2024 INFLUENZA, SPLIT VIRUS, TRIV ALENT W/ PRESERVATIVE IM 09/09/2022,08/28/2015 Influenza High-Dose Trivalen t Preservative Free IM 07/12/2025 Influenza Quadrivalent MDCK Preservative Free IM 08/14/2023,09/09/2022 Influenza Quadrivalent Prese rvative Free IM 08/28/2021,08/16/2020 Influenza Quadrivalent w/ Pr eservative IM 09/07/2019,08/17/2018,09/07/2017,09/01 Influenza, Unspecified Formulation 08/02/2019 Pneumococcal conjugate PCV13 04/29/2022 Pneumococcal polysaccharide PPSV23 08/28/2015 RSV Vaccine (monovalent, adjuvanted) 09/19/2024 Tdap 05/27/2016 Zoster recombinant 06/20/2021,08/16/2020 Family History Medical History Relation Comments Cancer Father Esophageal cancer Father Breast cancer Mother Cancer Mother Relation Status Comments Brother Alive Daughter 1 Alive Daughter 2 Alive Father (Age 68) throat cancer vs esophageal cancer Mother (Age 68) Sister 1 Alive Sister 2 Alive Social History Tobacco Use Types Packs/Day Years Used Date Smoking Tobacco: Former Cigarettes 2 34.9 1 982 - 10/02/2016 Smokeless Tobacco: Never Tobacco Cessation:Counseling Given: Not Answered Alcohol Use Standard Drinks/Week Comments Yes 2 [...] high school, GED, job training, learning the [place] language, technical skills, or developing parenting skills)? [...] your housing situation today? I have liliana mandujano 07/01/2024 How many times have you move [...] file Not on file Not on file Last Filed Vital Signs Vital Sign Reading Time Taken Comments Blood Pressure 128/74 07/12/2025 9:14 AM EDT Pulse 67 07/12/2025 9:14 AM EDT Temperature 35.4 C (95.8 F) 07/12/2025 9:14 AM EDT Respiratory Rate 16 07/12/2025 9:14 AM EDT Oxygen Saturation 98% 07/12/2025 9:14 AM EDT Inhaled Oxygen Concentration - - Weight 100.7 kg (222 lb) 07/12/2025 9:14 AM EDT Height 172.3 cm (5' 7.84 ) 07/12/2025 9:14 AM ED T Body Mass Index 33.92 07/12/2025 9:14 AM EDT Plan of Treatment Upcoming Encounters Date Type Department Care Team (Late st Contact Info) Description 09/13/2024 Procedure Pass [facility], Ct Scan - [address] [address] 08/28/2025 9:00 AM EDT Office Visit [facility] Medicine [address] [place] [phone] Shun Hernadez MD [address] [place] [phone] 08/28/2025 12:00 PM EDT Appointment [facility], Ct Scan - [address] [address] Shun Hernadez MD [address] [place] [phone] 09/11/2025 8:20 AM EST Office Visit Anticoagulation Clinic [address] [place] [address] Laurent Caceres MD [address] [place] [address] [email or web address] Maintenance Due Date Last Done Comments COLOGUARD 2005 FIT TEST 2005 FOBT 2005 SIGMOIDOSCOPY 2005 VIRTUAL COLONOSCOPY 2005 DEPRESSION SCREENING 07/01/2025 07/01/2024 COVID-19 VACCINE ( season) 2025 09/02/2024, 08/14/2023, 09/09/2022, Additional history exists LUNG CANCER SCREENING (LDCT Only) 08/23/2025 08/23/2024, 04/09/2023, 01/21/2022, Additional history exists BLOOD PRESSURE 01/09/2026 07/12/2025 Adult Td,Tdap Booster 05/27/2026 05/27/2016 CARBAMAZEPINE (TEGRETOL) LEVEL 07/12/2026 07/12/2025, 07/01/2024, 05/28/2023, Additional history exists CREATININE LEVEL 07/12/2026 07/12/2025, , 07/01/2024, Additional history exists POTASSIUM LEVEL 07/12/2026 07/12/2025, 12/04, 07/01/2024, Additional history exists PNEUMOCOCCAL VACCINES (50+ years) (3 of 3 - PCV20 or PCV21) 04/29/2027 04/29/2022, 08/28/2015 COLONOSCOPY 09/15/2027 09/15/2022, 02/23/2017 COLORECTAL CANCER SCREENING 09/15/2027 SCREENING FOR DIABETES 07/12/2028 , 07/12/2025, 12/20/2019 LIPID PANEL 07/12/2030 07/12/2025, 06/04, 04/30/2023, Additional history exists HEPATITIS C SCREENING Completed 12/12/2020 HIV ONE-TIME SCREENING (18-65 YEARS) Completed 05/22/2021 ZOSTER VACCINES Completed 06/20/2021, 08/16/2020 RSV VACCINE Completed 09/19/2024 INFLUENZA VACCINE Completed 07/12/2025, , 08/14/2023, Additional history exists ABDOMINAL AORTIC ANEURYSM (AAA) SCREENING Completed 07/26/2025 HEPATITIS A VACCINES Aged Out No long er eligible based on patient's age to complete this topic HIB VACCINES Aged Out No longer eligi ble based on patient's age to complete this topic MENINGOCOCCAL VACCINES (ACWY) Aged Out No longer eligible based on patient's age to complete this topic MENINGOCOCCAL VACCINES (B) Aged Out N o longer eligible based on patient's age to complete this topic Medical Devices Not on file Procedures Procedure Name Priority Date/Time Associated Diagnosis Comments POCT INR Routine 08/07/2025 8:17 AM EDT US ABDOMINAL AORTIC SCREENING Routine 07/26/2025 8:16 AM EDT Screening for AAA (abdominal aortic aneurysm) CARBAMAZEPINE (TEGRETOL) LEVEL Routine 07/12/2025 10:49 AM EDT Seizure disorder LIPID PANEL Routine 07/12/2025 10:49 AM EDT Benign essential hypertension COMPREHENSIVE METABOLIC PANEL Routine 07/12/2025 10:49 AM EDT Benign essential hypertension CBC AND DIFFERENTIAL Routine 07/12/2025 10:49 AM EDT Benign essential hypertension TSH WITH REFLEX Routine 07/12/2025 10:49 AM EDT Benign essential hypertension PSA (SCREENING) Routine 07/12/2025 10:49 AM EDT Screening for prostate cancer HEMOGLOBIN A1C Routine 07/12/2025 10:49 AM EDT Impaired fasting glucose 25-OH VITAMIN D Routine 07/12/2025 10:49 AM EDT Vitamin D deficiency, unspecified POCT INR Routine 07/10/2025 8:21 AM EDT POCT INR Routine 07/04/2025 8:34 AM EDT AMB REFERRAL TO [facility] ANT[facility]ATION [facility]IC Routine 05/29/2025 8:39 AM EDT DVT (deep venous thrombosis) Chronic anticoagulation POCT INR Routine 05/29/2025 8:[address] CHEST LUNG CANCER SCREENING ANNUAL Routine 08/23/2024 8:10 AM EDT Former smoker HM COLONOSCOPY FOR RESULT ENTRY ONLY Routine 09/15/2022 HEPATITIS C ANTIBODY, QUALITATIVE Routine 12/12/2020 10:26 AM EST Need for hepatitis C screening test OUTSIDE GLUCOSE FASTING Routine 12/20/2019 from Last 3 Months or Most Recently Relevant to Health Maintenance Results * (ABNORMAL) Poct INR (08/07/2025 8:17 AM EDT) Only the most recent of4 resultswithin the time period is included. INR 2.0(H) 0.86 - 1.17 [facility] Comment:Therapeutic Range 2. 0-3.5 08/07/2025 8:17 AM EDT 08/07/2025 8:19 AM EDT us Laurent Caceres MD POINT OF CARE TEST ORDERABLES Final Result Performing Organization Address City/State/[facility] Co de Phone Number [address] [address] * US Abdominal Aortic Screening (07/26/2025 8:16 AM EDT) Anatomical Region Laterality Modality Abdomen Ultrasound 07/26/2025 8:16 AM EDT Narrative 07/26/2025 8:42 AM EDT US ABDOMINAL AORTIC SCREENING Referring clinician's provided indication for this examination in Epic: AAA screening, smoking history TECHNIQUE: A duplex ultrasound evaluation of the abdominal aorta and iliac arteries as well as the inferior vena cava was performed using a combination of vazquez scale imaging, color duplex and spectral Doppler analysis. COMPARISON: none FINDINGS: Exam Quality: GENERAL: Color Doppler flow fills the lumen of the imaged aorta with no mural clot demonstrated. Spectral Doppler analysis demonstrates normal high resistive flow pattern. Aorta: Proximal: Borderline aneurysmal Mid: Ectatic Distal: Normal IVC: Patent with normal spectral Doppler waveforms. Right Common Iliac Artery: Borderline ectatic Left Common Iliac Artery: Ectatic Duplex: Proximal aorta: Peak systolic velocity (cm/s): 50.8 Aorta Diameter Proximal (cm): 2.6 x 3.0 Mid aorta: Peak systolic velocity (cm/s): 63.7 Aorta Diameter Mid (cm): 2.3 x 2.3 Distal aorta: Peak systolic velocity (cm/s): 68.0 Aorta Diameter Distal (cm): 1.8 x 1.7 Iliac arteries: Right common Iliac artery: Peak systolic velocity (cm/s): 77.4 Diameter(cm): 1.0 x 1.1 Left common Iliac artery: Peak systolic velocity (cm/s): 170 Diameter (cm): 0.9 x 1.2 IMPRESSIONS: * Borderline aneurysmal proximal abdominal aorta (3.0 cm). Procedure Note Evelyn Walker MBBS - 07/26/2025 US ABDOMINAL AORTIC SCREENING Referring clinician's provided indication for this examination in Epic:AAA screening, smoking history TECHNIQUE: A duplex ultrasound evaluation of the abdominal aorta and iliacarteries as well as the inferior vena cava was performed using acombination of vazquez scale imaging, color duplex and spectral Doppleranalysis. COMPARISON: none FINDINGS: Exam Quality: GENERAL: Color Doppler flow fills the lumen of the imaged aorta with nomural clot demonstrated. Spectral Doppler analysis demonstrates normalhigh resistive flow pattern. Aorta: Proximal: Borderline aneurysmal Mid: Ectatic Distal: Normal IVC: Patent with normal spectral Doppler waveforms. Right Common Iliac Artery: Borderline ectatic Left Common Iliac Artery: Ectatic Duplex: Proximal aorta: Peak systolic velocity (cm/s): 50.8 Aorta Diameter Proximal (cm): 2.6 x 3.0 Mid aorta: Peak systolic velocity (cm/s): 63.7 Aorta Diameter Mid (cm): 2.3 x 2.3 Distal aorta: Peak systolic velocity (cm/s): 68.0 Aorta Diameter Distal (cm): 1.8 x 1.7 Iliac arteries: Right common Iliac artery: Peak systolic velocity (cm/s): 77.4 Diameter(cm): 1.0 x 1.1 Left common Iliac artery: Peak systolic velocity (cm/s): 170 Diameter (cm): 0.9 x 1.2 IMPRESSIONS: * Borderline aneurysmal proximal abdominal aorta (3.0 cm). us Laurent Caceres MD IMG US ABDOMEN Final Result * (ABNORMAL) Comprehensive metabolic panel (07/12/2025 10:49 AM EDT) SODIUM 137 133 - 146 mmol/L [facility] POTASSIUM 5.2(H) 3.3 - 5.1 mmol/L [facility] CHLORIDE 103 96 - 108 mmol/L [facility] CO2 24 21 - 35 mmol/L [facility] BUN 18 6 - 19 mg/dL [facility] CREATININE 0.70 0.5 - 1.5 mg/dL [facility] GLUCOSE 106(H) 70 - 99 mg/dL [facility] ALBUMIN 4.3 3.9 - 4.8 g/dL [facility] TOTAL PROTEIN 7.4 6.5 - 8.0 g/dL [facility] CALCIUM 9.4 8.4 - 10.3 mg/dL [facility] ALKALINE PHOSPHATASE 128(H) 39 - 117 U/L [facility] TOTAL BILIRUBIN 0.3 0.0 - 1.2 mg/dL [facility] AST 18 0 - 37 U/L [facility] ALT 14 0 - 40 U/L [facility] GLOBULIN 3.1 1 - 4.8 g/dL [facility] EGFR 102 >59 mL/min/1.7 3m2 [facility] Comment:Estimated glomerular filtration rate calculated using the CKD-EPI refit equation. ANION GAP 15 10 - 20 mmol/L [facility] Blood 07/12/2025 10:4 9 AM EDT 07/12/2025 10:53 AM EDT us Laurent Caceres MD LAB BLOOD ORDERABLES Final Re sult Performing Organization Address City/[facility]/ZIP Co de Phone Number [address] [address] * TSH with reflex (07/12/2025 10:49 AM EDT) Pathologist [facility] [place] TSH 1.14 0.27 - 4.20 uIU/mL [facility] Blood 07/12/2025 10:4 9 AM EDT 07/12/2025 10:53 AM EDT Laurent Caceres MD LAB BLOOD ORDERABLES Final Re sult Performing Organization Address [facility]/ZIP Co de Phone Number [address] [address] * (ABNORMAL) 25-OH vitamin D (07/12/2025 10:49 AM EDT) Pathologist [facility] [place] 25 [place] VIT D (TOTAL) 22(L) 30 - 60 ng/mL [facility] Blood 07/12/2025 10:4 9 AM EDT 07/12/2025 10:53 AM EDT Laurent Caceres MD LAB BLOOD ORDERABLES Final Re sult Performing Organization Address [facility] Co de Phone Number [address] [address] * (ABNORMAL) CBC and differential (07/12/2025 10:49 AM EDT) WBC 6.94 4.00 - 11.00 K/uL [facility] RBC 4.68 4.50 - 5.90 M/uL [facility] HGB 14.6 13.5 - 17.5 g/dL [facility] HCT 44.9 41.0 - 53.0 % [facility] PLT 210 150 - 450 K/uL [facility] MCV 95.9 80.0 - 100.0 fL [facility] MCH 31.2(H) 27.0 - 31.0 pg [facility] MCHC 32.5 32.0 - 36.0 g/dL [facility] RDW 13.0 11.5 - 14.5 % [facility] MPV 8.8 8.4 - 12.0 fL [facility] NRBC 0.00 0.00 /100 WBCs [facility] ABSOLUTE NRBC 0.00 0.00 K/uL [facility] DIFF METHOD Auto [facility] NEUTS 65.3 48.0 - 76.0 % [facility] LYMPHS 20.5 18.0 - 41.0 % [facility] MONOS 10.5 4.0 - 11.0 % [facility] EOS 2.7 0.0 - 5.0 % [facility] BASOS 0.6 0.0 - 1.5 % [facility] Granulocytes, immature (%) 0.4 0.0 - 0.9 % [facility] ABSOLUTE NEUTS 4.53 1.92 - 7.60 K/uL [facility] ABSOLUTE LYMPHS 1.42 0.72 - 4.10 K/uL [facility] ABSOLUTE MONOS 0.73 0.16 - 1.10 K/uL [facility] ABSOLUTE EOS 0.19 0.00 - 0.50 K/uL [facility] ABSOLUTE BASOS 0.04 0.00 - 0.15 K/uL [facility] Granulocytes, immature 0.03 0.00 - 0.09 K/uL [facility] Blood 07/12/2025 10:4 9 AM EDT 07/12/2025 10:53 AM EDT us Laurent Caceres MD LAB BLOOD ORDERABLES Final Re sult [facility] [address] [place] [address] * PSA (screening) (07/12/2025 10:49 AM EDT) PSA 0.73 0 - 4.00 ng/mL [facility] Comment: Test Methodology [place] [id number] Patient results determined by assays using different manufacturers or methods may not be comparable. Blood 07/12/2025 10:4 9 AM EDT 07/12/2025 10:53 AM EDT us Laurent Caceres MD LAB BLOOD ORDERABLES Final Re sult Performing Organization Address [facility] Co de Phone Number [address] [address] * (ABNORMAL) Hemoglobin A1c (07/12/2025 10:49 AM EDT) HEMOGLOBIN A1C 6.1(H) 4.3 - 5.8 % [facility] Blood 07/12/2025 10:4 9 AM EDT 07/12/2025 10:53 AM EDT us Laurent Caceres MD LAB BLOOD ORDERABLES Final Re sult Performing Organization Address [facility] Co de Phone Number [address] [address] * Carbamazepine (Tegretol) level (07/12/2025 10:49 AM EDT) CARBAMAZEPINE 9.3 8.0 - 12.0 ug/mL [facility] Blood 07/12/2025 10:4 9 AM EDT 07/12/2025 10:53 AM EDT us Laurent Caceres MD LAB BLOOD ORDERABLES Final Re sult Performing Organization Address [facility] Co de Phone Number [address] [address] * Lipid panel (07/12/2025 10:49 AM EDT) HDL 38 mg/dL [facility] Comment: Interpretation <40 mg/dL: Low HDL cholesterol (major risk factor for CHD) Greater than or equal to 60 mg/dL: High HDL cholesterol ( negative risk factor for CHD) HDL - cholesterol is affected by a number of factors, e.g. smoking, excerise, hormones, sex and age. CHOLESTEROL 149 0 - 240 mg/dL [facility] TRIGLYCERIDES 100 30 - 160 mg/dL [facility] LDL 91 50 - 129 mg/dL [facility] Comment: LDL levels in terms of risk for coronary heart disease: <100 mg/dL: Optimal 100-129 mg/dL: Near or above optimal 130-159 mg/dL: Borderline high 160-189 mg/dL: High >190 mg/dL: Very High CARDIAC RISK RATIO 3.9 3.4 - 5.0 C [facility] Blood 07/12/2025 10:4 9 AM EDT 07/12/2025 10:53 AM EDT Laurent Caceres MD LAB BLOOD ORDERABLES Final Re sult [facility] [address] [place] [address] * Ambulatory referral to [facility] Anticoagulation Clinic (05/29/2025 8:39 AM EDT) Other Laurent Caceres MD AMB [facility] REFERRALS Final Resul t * CT CHEST LUNG CANCER SCREENING ANNUAL (08/23/2024 8:10 AM EDT) Anatomical Region Laterality Modality Chest Computed Tomogra phy 08/25/2024 4:49 PM EDT Impressions 08/25/2024 4:53 PM EDT Lung-RADS Category: 1. Negative study, as the identified nodule has benign calcification. RECOMMENDATIONS: Continue Lung-RADS Annual Lung Cancer Screening Chest CT in 12-14 months (scheduling range) if patient meets eligibility criteria. To order, please type CT CHEST SCREENING (CT.[email or web address]) and select ANNUAL for patient program status. Explanation of the Lung-RADS categories can be found at: [email or web address] Narrative 08/25/2024 4:[address] CHEST LUNG CANCER SCREENING ANNUAL Referring clinician's provided indication for this examination in [facility]: Lung Cancer Screening - FORMER smoker, quit in past 15 yrs (20+ pk-yrs, age 50-80) - ICD-10 Z87.891 TECHNIQUE: Low dose multidetector CT of the chest was performed without intravenous contrast using tailored dose modulation techniques. COMPARISON: None available. FINDINGS: Devices/Tubes/Lines: None. Lungs: There are occasional calcified granulomas, for example in the superior segment left lower lobe (5:159). Mild diffuse bronchial wall thickening. Mild upper lobe predominant emphysema. Patent central airways. Pleura: No pleural effusion or pneumothorax. Mediastinum: The heart size is normal. No pericardial effusion. Mild amount of coronary calcifications. Small hiatal hernia. Lymph Nodes: No enlarged supraclavicular, axillary, mediastinal, or hilar lymph nodes. Upper Abdomen: Absence of intravenous contrast and low dose technique limits sensitivity for detecting small lesions, solid organ and vascular findings. There are a few subcentimeter hypodensities in the liver that are too small to characterize, statistically likely to represent cysts Chest Wall: No chest wall mass. Bones: No suspicious lytic or blastic lesions. Degenerative changes in the spine with contiguous bridging of anterior osteophytes at multiple levels. Procedure Note Jeanna Salazar MD - 08/25/2024 CT CHEST LUNG CANCER SCREENING ANNUAL Referring clinician's provided indication for this examination in [facility]:Lung Cancer Screening - FORMER smoker, quit in past 15 yrs (20+ pk-yrs,age 50-80) - ICD-10 Z87.891 TECHNIQUE: Low dose multidetector CT of the chest was performed withoutintravenous contrast using tailored dose modulation techniques. COMPARISON: None available. FINDINGS: Devices/Tubes/Lines: None. Lungs: There are occasional calcified granulomas, for example in thesuperior segment left lower lobe (5:159). Mild diffuse bronchial wallthickening. Mild upper lobe predominant emphysema. Patent centralairways. Pleura: No pleural effusion or pneumothorax. Mediastinum: The heart size is normal. No pericardial effusion. Mildamount of coronary calcifications. Small hiatal hernia. Lymph Nodes: No enlarged supraclavicular, axillary, mediastinal, or hilarlymph nodes. Upper Abdomen: Absence of intravenous contrast and low dose techniquelimits sensitivity for detecting small lesions, solid organ and vascularfindings. There are a few subcentimeter hypodensities in the liver thatare too small to characterize, statistically likely to represent cysts Chest Wall: No chest wall mass. Bones: No suspicious lytic or blastic lesions. Degenerative changes in thespine with contiguous bridging of anterior osteophytes at multiplelevels. IMPRESSION: Lung-RADS Category: 1. Negative study, as the identified nodule has benigncalcification. RECOMMENDATIONS: Continue Lung-RADS Annual Lung Cancer Screening Chest CT in 12-14 months(scheduling range) if patient meets eligibility criteria. To order, please type CT CHEST SCREENING (CT.[email or web address]) and selectANNUAL for patient program status. Explanation of the Lung-RADS categories can be found at:[email or web address] Laurent Caceres MD IMG CT CHEST Final Result * COLONOSCOPY FOR RESULT ENTRY ONLY (09/15/2022) Result [facility] Historical Provider HEALTH MAINTENANCE Edited Result - Final * Hepatitis C antibody, qualitative (12/12/2020 10:26 AM EST) HCV NON-REACTIV E NON-REACTI VE [facility] Blood 12/12/2020 10:2 6 AM EST 12/12/2020 10:33 AM EST Result [facility] Laurent Caceres MD LAB BLOOD ORDERABLES Final Re [place] [place] [facility] Organization Address City/State/ZIP Co de Phone Number [facility] [address] [place] [address] * (ABNORMAL) Outside Glucose,Fasting (12/20/2019) Glucose, fasting - External 103(A) 65 - 99 mg/dL Result [facility] Historical Provider LAB BLOOD ORDERABLES Florencia l Result from Last 3 Months or Most Recently Relevant to Health Maintenance Insurance MEDICARE PART A & B [place] P[place] BLUE REPLACEMENT [address] [facility] [facility] [address] [place] Advance Directives For more information, please contact: [phone] (9AM - 5PM [facility], Thursday-Thursday) * Full Code (Latest Code Status on File) Date Activated Date Inactivated Comments 07/12/2025 9:51 AM Question Answer Comments Code Status Confirmed With: Patient Code Status Communicated To: PCP Code Discussion Comments: pt requests all life s avi measures Care Teams Floodplain Manager Relationship Specialty Start Date End Date Laurent Caceres MD [address] [place] [id number] [email or web address] PCP - General 08/07/25 Gumaro Swanson MD [address] [place] [id number] Gastroenterology 02/23/20 Millie Forte MBBS [address] [place] [address] [email or web address] Medical Oncology 05/06/24 Jennifer Yanes, RN [address] [place] [phone] [email or web address] Registered Nurse 08/07/25 Additional Source Comments The information contained in this document represents components of the legal health record. It is not the complete legal health record.[facility]
--- NOTE | 2025-08-24 08:12 | A.OFFPC_ITS ---
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 Allergies No Known Allergies (No Known Allergies*) Allergy (Verified 08/24/25 08:37) Medication List - Last Reviewed 08/24/25 by ALEJANDRA Mattson albuterol sulfate 90 mcg/actuation 2 puffs inhalation Q6H PRN carbamazepine mg PO lncdgrxqewr-glowrxyhr-nufutxjx 100-62.5-25 mcg (Trelegy Ellipta) 1 ea inhalation DAILY lisinopril 1 tab PO DAILY roflumilast 500 mcg PO DAILY warfarin 5 - 7.5 mg PO BEDTIME Tobacco use date assessed: 08/24/25 Fall risk assessment: No Falls in past year Last assessed Fall Risk: 08/24/25 Dental Screening Dental Screen Date: 08/24/25 Did you have a dental visit in the last 12 months?: No Did you have a dental problem in the last 6 months where you did not have access to dental care?: No Was dental information given to patient?: No (pt has dentures) HPI HPI Comments History of Present Illness Details 65 y/o M former smoker, [place] COPD over lap, Sz disorder, DISH thoracic spine, HTN, IFG, hx of spontaneous DVT LLE, Factor V Leiden mutation, obesity, Vit D def, pulm nodules, OA, PVD SurgHx: eye surgery FHx SocHx: , 2 children, 2 grandchildren Health Maintenance: See scanned preventative medicine assessment with personalized health plan and screening schedule. Colon: 2021 Vaccines: UTD on all AAA screen: 2024, need report from [facility] EKG: Lung Ca screening [place] of Care: Heme Dr Rizvi @ [facility] next visit 09/[address] Hernadez, appt next week Optho History of Present Illness The patient is a 65-year-old male presenting for the establishment of care and follow-up on chronic conditions. Previous pcp dr delacruz, limited MR reviewed. Chronic Obstructive Pulmonary Disease (COPD): - Asthma-COPD overlap. - Managed with albuterol, Trelegy, roflu milast. - Continues follow-up with chemical librarian . Deep Vein Thrombosis (DVT) due to Factor V Leiden Mutation: - History of spontaneous DVT. - On warfarin; managed by hematology. - No recent occurrences noted. Essential Hypertension: - Controlled with lisinopril. - No symptoms reported. Seizure Disorder: - Treated with carbamazepine, 700 mg casi ly. - Seizure-free. Obesity: - BMI 33.2. - Requires continued management. Review of Systems - Pulmonary: Reports improved breathing; denies recent exacerbations. - Cardiovascular: Denies symptoms of rec ent DVT; on warfarin. - Neurological: Denies seizures; control led with medication. - Musculoskeletal: Denies new symptoms; routine joint pain noted. - Other: No significant changes or compl aints noted. Physical Exam General: Well developed, well nourished, in no acute distress. Appears stated age. Head: Normocephalic, atraumatic. Eyes: Pupils are equal, round and reactive to light and accommodation. Conjunctivae are clear. Vision grossly normal. Lungs: Clear to auscultation bilaterally. No rales, rhonchi or wheeze noted. Good air flow in all [place]. Heart: Regular rate and rhythm. No murmurs, click, rubs or gallops are noted. Musculoskeletal: Joints are nontender, without swelling, redness, or effusions. Pulses: Peripheral pulses are equal and palpable bilaterally. PVD evident on exam. Skin intact Extremities: No clubbing, cyanosis nor edema is noted. Psych: Mood and affect appropriate. Discussion Notes I discussed with the patient the ongoing management of his chronic conditions. We reviewed his medications including albuterol, Trelegy, roflumilast, warfarin, lisinopril, and carbamazepine, reiterating their importance in his management plan. I have ordered previous ultrasound results and will review his recent lab work to ensure comprehensive care. Follow-up appointments with pulmonology and hematology remain essential, and his next scheduled appointment with pulmonology was noted. We emphasized consistent medication adherence and discussed the importance of lifestyle modifications in managing his obesity and hypertension. Instructions for obtaining labs one week prior to his next routine visit were provided. Patient was given time to ask questions. All questions were answered to their satisfaction. Assessment and Plan 1. Chronic Obstructive Pulmonary Disease (COPD) - Continue current pulmonary medication. - Scheduled follow-up with pulmonology. 2. Deep Vein Thrombosis (DVT) due to Fac tor V Leiden Mutation - Continue regimen of warfarin. - Regular INR checks. 3. Essential Hypertension - Continue lisinopril. - Monitor blood pressure. 4. Seizure Disorder - Maintain carbamazepine 700 mg daily. 5. Obesity - Emphasize lifestyle adjustments. Patient Instructions - Take all prescribed medications as dir ected. - Follow up with pulmonology and hematol ogy as scheduled. - Adhere to a low-sodium, balanced diet to aid weight management. - Monitor any symptoms of DVT and report changes. - Schedule labs one week before next vis it. - RTO 6 mo routine fu labs 1 week before , sooner PRN Consent Patient was informed and verbally consented to the use of an ambient scribe for clinic note documentation during this visit. Total time spent caring for the patient today was 45 minutes. This includes time spent before the visit reviewing the chart, time spent during the visit, and time spent after the visit on documentation, reviewing laboratory results, diagnostic imaging, medications, performing a medically necessary evaluation, counseling on diagnoses, care coordination, ordering appropriate tests, ordering appropriate medications, review of tests performed by other providers, reporting test results with the patient, communication with other healthcare providers. [facility] Medical History (Updated 08/24/25 @ 09:20 by Marielena Almazan [facility]) Arthritis COPD (chronic obstructive pulmonary disease) History of MRSA infection (~2015) History of seizure disorder Hypertension Personal history of nicotine dependence Spondylosis of thoracolumbar spine Tubular adenoma of colon (~2010) Surgical History History of eye surgery History of colonoscopy (~2021) Family History (Updated 08/24/25 @ 08:28 by ALEJANDRA Mattson) Father Esophagus cancer Social History (Updated 08/24/25 @ 08:21 by ALEJANDRA Mattson) Housing: Apartment Alcohol intake: current Alcohol intake frequency: a few times a week Patient Tobacco Use Status: Former Tobacco user Cigarette Packs Per Day: 2 e-Cigarette/Vaping Use: Never Used Second Hand Smoke Exposure: No service: No Current occupational status: employed Current occupation: [employer] Current occupational exposures/hazards: No Cognitive needs: No Hearing needs: No Vision needs: Yes Questionnaire PHQ-9 Over the last 2 weeks, how often have you been bothered by any of the following problems? 1. Little interest or pleasure in doing things: not at all 2. Feeling down, depressed, or hopeless: not at all 3. Trouble falling or staying asleep, or sleeping too much: not at all 4. Feeling tired or having little energy: not at all 5. Poor appetite or overeating: not at all 6. Feeling bad about yourself - or that you are a failure or have let yourself or your family down: not at all 7. Trouble concentrating on things, such as reading the newspaper or watching television: not at all 8. Moving or speaking so slowly that other people could have noticed. Or the opposite - being so fidgety or restless that you have been moving around a lot more than usual: not at all 9. Thoughts that you would be better off or of hurting yourself in some way: not at all Total score: 0 Depression Screening Interpretation: Negative Depression Screening Done: Yes 07770 - PHQ-9 Billing: Yes Source: Developed by Drs. Gumaro Ha, Nasreen Og, Liborio Raines and colleagues, with an educational paul from [employer]. Thrive Questionnaire Date Thrive assessed: 08/24/25 I am a: Patient What is your living situation today?: I have a steady place to live Within the past 12 months, did the food you bought not last and you didn't have the money to get more?: Never true Within the past 12 months, did you worry whether your food would run out before you got money to buy more?: Never true Do you have trouble paying for medicines?: No Do you have trouble getting transportation to medical appointments?: No Do you have trouble paying your heating and electricity bill?: No Do you have trouble taking care of your child, family member or friend?: No Do you have trouble with day-to-day activities such as bathing, preparing meals, shopping, managing finances, etc.?: No Are you currently unemployed and looking for a job?: No Are you interested in more education?: No Please select the resources that you would like help with: None Currently or been in a relationship where the following occur: No concerns reported THRIVE Score: 0 AUDIT C Alcohol Use Questionnaire (AUDIT-C) 1. How often do you have a drink containing alcohol?: Monthly or less 2. How many drinks containing alcohol do you have on a typical day when you are drinking?: 1 or 2 3. How often do you have six or more drinks on one occasion?: Never Total Score: 1 Score Reviewed/Action Taken: Yes JACK-7 AMB Questionnaire JACK-7 Date JACK - 7 assessed: 08/24/25 Feeling nervous, anxious, or on edge: 0 = Not at all Not being able to stop or control worryin = Not at all Worrying too much about different things: 0 = Not at all Trouble relaxin = Not at all Being so restless that it is hard to sit still: 0 = Not at all Becoming easily annoyed or irritable: 0 = Not at all Feeling afraid as if something awful might happen: 0 = Not at all Total JACK-7 score (0-4 normal; 5-9 mild; 10-14 moderate; 15-21 severe): 0 Source: Developed by Drs. Gumaro Ha, Nasreen Og, Liborio Raines and colleagues, with an educational paul from [employer]. JACK-7 Assessment Billing JACK-7 Assessment Tool: JACK-7 Assessment 36301 Physical exam (Primary Care) Vital Signs: Last Vital Signs Temp 97.5 F 08/24/25 08:22 Pulse 64 08/24/25 08:22 Resp 16 08/24/25 08:22 BP 124/64 08/24/25 08:22 Pulse Ox 100 08/24/25 08:22 Oxygen Delivery Method Room Air 08/24/25 08:22 BMI result Body Mass Index 33.2 BMI Assessment/Plan discussion: High BMI High, discussed plan: lifestyle Tobacco/Smoking Status: Tobacco use Status Tobacco use date assessed 08/24/25 08/24/25 08:28 Patient Tobacco Use Status Former Tobacco user 08/24/25 08:21 e-Cigarette/Vaping Use Never Used 08/24/25 08:28 PHQ-9: PHQ-9 Score PHQ-9: Total score 0 08/24/25 08:39 Depression Screening Interpretation: Negative Thrive Assessment: Date of Thrive Assessment Date Thrive assessed 08/24/25 08/24/25 08:12 Currently or been in a relationship where the following occur: No concerns reported Coding Level of Care Code New Pt Level 4 (42190) Complex EM visit Add On G2211 Diagnoses Encounter to establish care Z76.89 Factor V Leiden mutation D68.51 Hx of deep venous thrombosis Z86.718 Obesity (BMI 30-39.9) E66.9 Seizure disorder G40.909 Asthma-COPD overlap syndrome J44.9 Vitamin D deficiency E55.9 Primary hypertension I10 Hypertension type: primary hypertension PVD (peripheral vascular disease) I73.9 Additional Codes JACK-7 Assessment Billing - JACK-7 Assessment Tool: JACK-7 Assessment 46509 ([id number]) PHQ-9 - 41653 - PHQ-9 Billing: Yes ([id number]) Assessment & Plan Assessment & Plan (1) Encounter to establish care: Code(s): Z76.89 - Persons encountering health services in other specified circumstances (2) Factor V Leiden mutation: Code(s): D68.51 - Activated protein C resistance Category: Medical (3) Hx of deep venous thrombosis: Code(s): Z86.718 - Personal history of other venous thrombosis and embolism Category: Medical (4) Obesity (BMI 30-39.9): Code(s): E66.9 - Obesity, unspecified Category: Medical (5) Seizure disorder: Code(s): G40.909 - Epilepsy, unspecified, not intractable, without status epilepticus Category: Medical (6) Asthma-COPD overlap syndrome: Code(s): J44.9 - Chronic obstructive pulmonary disease, unspecified Category: Medical (7) Vitamin D deficiency: Code(s): E55.9 - Vitamin D deficiency, unspecified Category: Medical (8) Hypertension: Code(s): I10 - Essential (primary) hypertension Category: Medical Qualifiers: Hypertension type: primary hypertension Qualified Code(s): I10 - Essential (primary) hypertension (9) PVD (peripheral vascular disease): Code(s): I73.9 - Peripheral vascular disease, unspecified Category: Medical Plan , Orders: Orders Comprehensive Met. Panel Today D68.51 - Activated protein C resistance, E55.9 - Vitamin D deficiency, unspecified, E66.9 - Obesity, unspecified, G40.909 - Epilepsy, unspecified, not intractable, without status epilepticus, I10 - Essential (primary) hypertension, Z86.718 - Personal history of other venous thrombosis and embolism Prostate Specific Antigen Scr Today D68.51 - Activated protein C resistance, E55.9 - Vitamin D deficiency, unspecified, E66.9 - Obesity, unspecified, G40.909 - Epilepsy, unspecified, not intractable, without status epilepticus, I10 - Essential (primary) hypertension, Z86.718 - Personal history of other venous thrombosis and embolism Vitamin B12 and Folate Today D68.51 - Activated protein C resistance, E55.9 - Vitamin D deficiency, unspecified, E66.9 - Obesity, unspecified, G40.909 - Epilepsy, unspecified, not intractable, without status epilepticus, I10 - Essential (primary) hypertension, Z86.718 - Personal history of other venous thrombosis and embolism Vitamin D 25-OH Total Today D68.51 - Activated protein C resistance, E55.9 - Vitamin D deficiency, unspecified, E66.9 - Obesity, unspecified, G40.909 - Epilepsy, unspecified, not intractable, without status epilepticus, I10 - E ssential (primary) hypertension, Z86.718 - Personal history of other venous thrombosis and embolism Complete Blood Count no Diff Today D68.51 - Activated protein C resistance, E55.9 - Vitamin D deficiency, unspecified, E66.9 - Obesity, unspecified, G40.909 - Epilepsy, unspecified, not intractable, without status epilepticus, I10 - Essential (primary) hypertension, Z86.718 - Personal history of other venous thrombosis and embolism Hemoglobin A1c Today D68.51 - Activated protein C resistance, E55.9 - Vitamin D deficiency, unspecified, E66.9 - Obesity, unspecified, G40.909 - Epilepsy, unspecified, not intractable, without status epilepticus, I10 - Essential (primary) hypertension, Z86.718 - Personal history of other venous thrombosis and embolism Lipid Panel Today D68.51 - Activated protein C resistance, E55.9 - Vitamin D deficiency, unspecified, E66.9 - Obesity, unspecified, G40.909 - Epilepsy, unspecified, not intractable, without status epilepticus, I10 - Essential (primary) hypertension, Z86.718 - Personal history of other venous thrombosis and embolism Microalbumin, Random (w Creat) Today D68.51 - Activated protein C resistance, E55.9 - Vitamin D deficiency, unspecified, E66.9 - Obesity, unspecified, G40.909 - Epilepsy, unspecified, not intractable, without status epilepticus, I10 - Essential (primary) hypertension, Z86.718 - Personal history of other venous thrombosis and embolism TSH reflex Free T4 Today D68.51 - Activated protein C resistance, E55.9 - Vitamin D deficiency, unspecified, E66.9 - Obesity, unspecified, G40.909 - Epilepsy, unspecified, not intractable, without status epilepticus, I10 - Essential (primary) hypertension, Z86.718 - Personal history of other venous thrombosis and embolism Medications: Changed From lisinopril 1 tab PO DAILY To lisinopril 5 mg PO DAILY 90 tabs 2RF From carbamazepine PO To carbamazepine 700 mg (3.5 x 200 mg) PO DAILY 315 tabs 2RF 90 days Patient Instructions: Walk-In Care (Urgent Care): We Make it Easy Walk-in for urgent medical issues such as: ? Seasonal Allergies ? Insect Bites ? Cough ? Diarrhea ? Acute Asthma Attacks ? Back, Knee or Joint Pain ? Ear Infection ? Fever without a Rash ? Headaches ? Nausea ? [place], Rash or Skin Irritation ? Sore Throat ? Sports Physicals ? Vomiting Most insurances are accepted. Patients do not need to be part of the [facility] to seek care at the walk-in clinic. Locations [address] [place] [address] Open Thursday through Thursday 8am-5pm *Hours may vary due to staffing availability. To confirm Walk-In Care hours please call. Sanjiv Tobin Hernandez, [place] [address] ? [phone] [facility] in [place] provides services to ages 18 and over. Open Thursday-Thursday: 7 a.m. to 5 p.m. and Thursday: 9 a.m. to 3 p.m.* *Hours may vary due to staffing availability. To confirm Walk-In Care hours in [place], please call [phone]. [address] [place] [address] ? [phone] [facility] in [place] provides services to ages 12 and over. Open Thursday-Thursday: 8 a.m. to 5 p.m. Hours may vary due to staffing availability. To confirm Walk-In Care hours in [place], please call [phone]. LABORATORY SERVICES: [facility] Lab ? Primary Location [address] [place] [address] Thursday through Thursday 6:00 AM ? 5:00 PM Thursday 7:00 AM ? 11:00 AM* [phone] The [facility] Lab is centrally located near the front entrance of the [facility] for easy outpatient access. Convenient parking is provided for outpatients. *Hours may vary due to staffing availability. To confirm Laboratory hours for any location, please call [phone]. Offsite Location For your convenience, we offer offsite laboratory draw stations at the following locations: [address] [place] [address] ? [facility] [address], [address] Thursday through Thursday 7:30 AM ? 1:00 PM* [phone] *Hours may vary due to staffing availability. To confirm Laboratory hours for any location, please call [phone]. [place] ? [address] Thursday through Thursday 6:00 AM ? 3:30 PM* Thursday 6:30 AM ? 3 PM* [phone] *Hours may vary due to staffing availability. To confirm Laboratory hours for any location, please call [phone] [place] [address] Thursday through Thursday 7:30 AM ? 4:00 PM* [phone] *Hours may vary due to staffing availability. To confirm Laboratory hours for any location, please call [phone] [place] [address] Thursday through 9:00 AM ? 4:00 PM* *Hours may vary due to staffing availability. To confirm Laboratory hours for any location, please call [phone]. Appointments are not necessary. Walk-ins are welcome. Like all the departments throughout the [facility], our Lab undergoes frequent reviews to ensure the quality and accuracy of test results, and our staff takes special pride in its status as a nationally accredited facility. Patient Portal: [facility] ONE PATIENT. ONE RECORD. BETTER CARE. [facility] has a fully integrated, cutting- edge mobile electronic health information system that has revolutionized the way we care for our patients and manage our organization. This system improves communication and coordination enabling us to provide safe, higher-quality care, and an overall positive experience for staff and patients. Our first priority, as always, is to deliver the highest quality care possible. The system is running in the background supporting that priority. This portal is for all [facility] services and practices. If you are experiencing any technical difficulties with enrolling or logging into the Patient Portal please complete the [facility] Patient Portal Technical Support Form. [facility] now offers a new secure on-line interactive tool for patients to review their health information ? ?Patient Portal. This interactive web portal will enable patients and their families to take an active role in their care by providing easy, secure access to their health information via the internet. The Patient Portal provides patients with instant access to their health information, including laboratory results, medications, allergies, demographic information, visit history, and more. In addition to managing their own care, parents and health care proxies with authorized consent will appreciate the ability to access the records of those individuals for whom they provide care. Please note: if you wish to gain access (Proxy) to another patient?s portal, you will be required to come to the Medical Records Department in person at [facility]. Both the patient giving proxy access and the proxy will need to provide photo identification and complete the appropriate authorization. The Patient Portal also allows track their appointments online. The [facility] Patient Portal also saves patients time by allowing them to submit updates to their demographic and contact information prior to their visits. Portal email notifications will also alert patients to any new activity on their portal, such as test results and new appointments. In order to initially enroll in the [facility] Patient Portal, you will need to enter some required information including the following: * your [facility] Medical Record number * your personal home email address * name * date of Please note: In order to enroll in the [facility] Patient Portal, we need to have your email address on file in your electronic medical record. ?The email address needs to be specific for one person (yourself) in order for your Portal enrollment to be successful. ?You can update your email address in person with our Registration staff when you are registering for a hospital visit. ?Otherwise, you will need to come to the Health Information Management (Medical Records) Department at [facility]. ?We are open from Thursday ? Thursday from 7:30 a.m. ? 4:30 p.m. ?You will be required to present a photo id. Once you have successfully enrolled in the Patient Portal, you will receive a one-time user id and password for the Portal, sent to your email address. ?This will allow you to log into the Patient Portal within 99 hrs and reset your own logon id and password, and define personal security questions. ?Once your permanent login and password have been set, you can log into the [facility] Patient Portal at any time via the blue button above or from the Portal Logon button on any page of the [facility] website. [facility] and [facility] encourage all of our patients to enroll in Patient Portal as it presents a valuable opportunity for patients and their families to actively participate in their care and stay healthy Welcome to [facility]. ?We look forward to working with you.
[2025-08-24 08:22] VITALS: BP 124/64; PULSE 64; RESP 16; TEMP 36.4; O2SAT 100; BMI 33.2
== END 2025-08-24 09:15 | disposition home or self-care (01) ==
LOC: HO.HMCFM 07:52
PROVIDERS: PCP Nurse Practitioner Family; Visit Provider Nurse Practitioner Family
DX: J44.9 Chronic obstructive pulmonary disease, unspecified (principal); G40.909 Epilepsy, unspecified, not intractable, without status epilepticus; E66.9 Obesity, unspecified; Z68.33 Body mass index [BMI] 33.0-33.9, adult; Z76.89 Persons encountering health services in other specified circumstances; D68.51 Activated protein C resistance; Z86.718 Personal history of other venous thrombosis and embolism; I10 Essential (primary) hypertension; E55.9 Vitamin D deficiency, unspecified; I73.9 Peripheral vascular disease, unspecified

== ENCOUNTER → 2025-08-24 07:52 | Outpatient (BNVA) | payer MEDICARE, SELFPAY | PROVIDERS: PCP Nurse Practitioner Family; Visit Provider Nurse Practitioner Family | DX: I10 Essential (primary) hypertension (principal); J44.89 Other specified chronic obstructive pulmonary disease; D68.51 Activated protein C resistance; G40.909 Epilepsy, unspecified, not intractable, without status epilepticus; E66.9 Obesity, unspecified; Z68.33 Body mass index [BMI] 33.0-33.9, adult; E55.9 Vitamin D deficiency, unspecified; I73.9 Peripheral vascular disease, unspecified; Z86.718 Personal history of other venous thrombosis and embolism; Z76.89 Persons encountering health services in other specified circumstances | CPT/HCPCS: 96127; 99202 ==